=== PATIENT | male | born 1965 | race Caucasian/White ===

== ENCOUNTER 2024-09-05 10:02 | Outpatient (OUT) | payer OTHER, SELFPAY ==
[2024-09-05 10:21] LABS: Basophils Percent Auto 0.2 % (0.2-2.0); Eosinophils Absolute Auto 0.2 10^3/uL (0.0-0.7); Eosinophils Percent Auto 3.7 % (0.9-7.0); Hematocrit 41.9 % (42.0-54.0); Hemoglobin 14.7 g/dL (14.0-18.0); Immature Granulocytes Abs Auto 0.01 10^3/uL (0.00-0.03); Immature Granulocytes Pct Auto 0.2 % (0.0-0.5); Lymphocytes Absolute Auto 1.6 10^3/uL (1.2-3.8); Lymphocytes Percent Auto 32.3 % (20.5-60.0); Mean Corpuscular HGB Conc 35.1 g/dL (29.9-35.2); Mean Corpuscular Hemoglobin 32.5 pg (25.9-34.0); Mean Corpuscular Volume 92.7 fL (80.0-94.0); Monocytes Absolute Auto 0.6 10^3/uL (0.3-0.8); Monocytes Percent Auto 11.2 % (1.7-12.0); Neutrophils Absolute Auto 2.6 10^3/uL (1.4-6.5); Neutrophils Percent Auto 52.4 % (43.0-75.0); Platelet Count 263 10^3/uL (150-450); Red Blood Count 4.52 10^6/uL (4.70-6.10); Red Cell Distribution Width 11.6 % (11.0-15.0); White Blood Count 4.9 10^3/uL (4.0-11.0)
[2024-09-05 10:43] LABS: Estimated Average Glucose 103 mg/dL; Glycohemoglobin A1C 5.2 % (4.5-6.2)
[2024-09-05 11:10] LABS: Alanine Aminotransferase 29 U/L (16-63); Albumin Globulin Ratio 1.1; Albumin Level 3.8 g/dL (3.4-5.0); Alkaline Phosphatase 61 U/L (46-116); Anion Gap 11.8; Aspartate Amino Transferase 26 U/L (15-37); BUN Creatinine Ratio 17.4; Bilirubin Total 0.8 mg/dL (0.2-1.0); Calcium 9.3 mg/dL (8.5-10.1); Carbon Dioxide 29.3 mmol/L (21.0-32.0); Chloride 100 mmol/L (98-107); Chol HDL Ratio 2.5; Cholesterol 203 mg/dL (<=200); Estimated GFR (African America >60 (>=60 mL/min/1.73m^2); Estimated GFR (Non-African Ame >60 (>=60 mL/min/1.73m^2); Free T3 3.34 pg/mL (2.18-3.98); Globulin 3.4 g/dL; Glucose 95 mg/dL (74-106); HDL Cholesterol 81 mg/dL (40-60); Potassium 4.1 mmol/L (3.5-5.1); Prostate Specific Antigen Scrn 0.93 ng/mL (<=4.00); Sodium 137 mmol/L (136-145); Thyroid Stimulating Hormone 1.268 uIU/mL (0.358-3.740); Total Protein 7.2 g/dL (6.4-8.2); Triglycerides 63 mg/dL (<=150); VLDL CHOLESTEROL 12.6 mg/dL
== END 2024-09-05 10:03 | disposition home or self-care (01) ==
LOC: LAB 10:05
PROVIDERS: PCP Family Medicine; Visit Provider Family Medicine
DX: Z00.00 Encounter for general adult medical examination without abnormal findings (principal); I10 Essential (primary) hypertension; Z12.5 Encounter for screening for malignant neoplasm of prostate
CPT/HCPCS: 36415; 80053; 80061; 83036; 84436; 84443; 84481; 85025; G0103

== ENCOUNTER 2024-09-14 09:45 | Outpatient (OUT) | payer OTHER, SELFPAY | END 2024-09-14 09:46 | disposition home or self-care (01) | LOC: PST 09:45 | PROVIDERS: PCP Family Medicine; Visit Provider Surgery | DX: Z01.818 Encounter for other preprocedural examination (principal); Z12.11 Encounter for screening for malignant neoplasm of colon ==

== ENCOUNTER 2024-09-26 07:14 | Day surgery (SDC) | payer OTHER, SELFPAY ==
--- NOTE | 2024-09-26 | OP_ITS ---
OPERATION DATE: 09/26/2024 PREOPERATIVE DIAGNOSIS: Colorectal screening. POSTOPERATIVE DIAGNOSIS: Redundant colon. PROCEDURE: Colonoscopy to cecum. SURGEON: Alex Means M.D. ANESTHESIA: Monitored anesthesia care. ESTIMATED BLOOD LOSS: Zero INDICATIONS AND CONSENT: Patient is a 58-year-old male presents for colorectal screening. Indications, risks, benefits, alternatives of proceeding with colonoscopy were explained extensively to the patient, including the risks of bleeding, colon perforation or anesthetic complications. All of his questions were answered. Informed consent was obtained. PROCEDURE: Patient brought to the operating room, placed in the left lateral decubitus position. Monitored anesthesia care was provided. Rectal exam was performed which showed no masses or blood. The scope was inserted into the anal canal. Under direct visualization was advanced. With the aid of abdominal compression, it was advanced to the cecum where cecal markings were clearly identified. Upon withdrawal of the scope, mucosal surfaces were carefully examined. There was noted to be a good prep. There were no mass lesions or polyps. No inflammatory changes or ulcerations. No significant diverticulosis. There was redundancy of the colon with spasm. The scope was retroflexed in the anal canal. There were some prominent rectal veins. No significant hemorrhoidal disease. Scope was then withdrawn. Patient tolerated procedure well, was sent to recovery room in good condition. Follow up screening colonoscopy should be in 10 years. CC: Gm Pearson M.D. [facility]
--- OUTSIDE RECORDS SUMMARY | 2024-09-26 07:17 | XMS_ITS | CCD ---
Author Organization [facility] Care Team Providers Care Nib Assembler Name Role Phone Alex RUSSELL Attending Unavailable Gm Pearson Referring Unavailable Allergies Allergy Classification Reported Allergen(s) Allergy Type Date of Onset Reaction(s) Facility (1 source) Penicillin; Translations: [penicillin] Drug Allergy [facility] Repository Results Test Name Value Interpretation Reference Range Facil ity Ambulatory Visit Summaryon 0 09-12-2024 Ambulatory Visit Summary Ambulatory Visit Summary HARRIETT DUARTE :1965 Visit Date:09/12/2024 Ambulatory Visit Instructions Your Care Team Attending Physician - Alex RUSSELL MD Primary Care Physician - Gm Pearson MD Referring Physician - Gm Pearson MD This Is Your Medications List Contact prescribing physician if questions or concerns hydrochlorothiazide-li sinopril (hydrochlorothiazide-l isinopril 25 mg-20 mg Tab) multivitamin (Multi Vitamins oral tablet) Procedures Performed Colonoscopy. Discharge Vitals Heart Rate (Peripheral) 72 Respiratory Rate 16 Blood Pressure 138/74 Height 180.34 cm Height 71 in Weight 103.5 kg Weight 228.178 lb BMI 31.82 Medications What How Much When Instructions Unchanged hydrochlorothiazide-li sinopril (hydrochlorothiazide-l isinopril 25 mg-20 mg Tab) 1 Tablets By Mouth Every day Contact prescribing physician if questions or concerns Unchanged multivitamin (Multi Vitamins oral tablet) 1 Tablets By Mouth Every day Contact prescribing physician if questions or concerns Allergies penicillin (Hives) Problems Ongoing - Any problem that you are currently receiving treatment for. BMI 31.0-31.9,adult History of nephrolithiasis Hypertension Obesity due to excess calories Patient Survey You may receive a survey via text or e-mail asking about your office visit. Please share your experience with us by completing your survey. We appreciate your feedback and thank you for choosing us for your care. Normal [facility] Encounters Encounter Date Encounter Type Care Provider Facility Start: 09-12-2024 End: 09-12-2024 ambulatory Alex RUSSELL Facility:[facility] Start: 09-03-2024 ambulatory Alex RUSSELL Facility:[facility] Payers Date Payer Category Payer Unknown [id number] 1965 Unknown [id number] Clinical Note 09-12-2024 Note Date & Type Note Facility 09-12-2024 Note General Surgery Offi ce/Clinic Note Chief Complaint consultation for colonoscopy HPI Staff 58 year old male presents on consultation from Dr. Pearson for screening colonoscopy. Denies abdominal or rectal pain. No rectal bleeding or change in bowel habits. Denies nausea or vomiting. No unexplained weight loss. Reports previous colonoscopy was [place] approximately [place] He can recall polyp removal with recommended 5 year recall which he did not follow through with. Family history of colon cancer in grandfather- age 70's or 80's.. History of Present Illness 58 yo male with h/o htn, nephrolithiasis, referred for colorectal screening; denies change in bms or blood in stools; no abd complaints; no abd operations; last colonoscopy 10 years ago in [place], reportedly with removal of several polyps; no asa or NSAID use; smokes several cigars per year, no cigarettes; fmhx of colon cancer in grandfather, dx in his 70's, no fmhx of IBD. Review of Systems PHQ Score Initial Depression Screen Score: 0 SCORE ROS - Provider Constitutional: no fever, no sweats, no weight loss. Eyes: no glasses, no blurred vision, no visual loss. ENMT: no dentures, no hoarseness, no swallowing difficulties, no hearing loss, no ear infection(s), no nose bleeds. Cardiovascular: normal blood pressure, no chest pain, regular heartbeat, no heart murmur. Respiratory: no shortness of breath, no cough, no asthma, no wheezing. Gastrointestinal: no nausea, no vomiting, no diarrhea, no constipation, no blood in stool, no change in bowel habits, no abdominal pain, no hepatitis. Genitourinary: no kidney stones, no urine infection, no dysuria. Musculoskeletal: no pain, no weakness. Skin: no changing moles, no rash, no skin lumps. Neurologic: no seizures, no epilepsy, no headache. Psychiatric: no emotional or psychiatric problem. Heme/Lymph: no bleeding problems, no anemia, no blood clots, no transfusions. Allergy/Immunologic: no swollen lymph nodes/glands, no IV drug abuse. Other: Additional ROS info: Except as noted in the above Review of Systems and in the History of Present Illness, all other systems have been reviewed and are negative or noncontributory. Physical Exam Vitals & Measurements HR: 72(Peripheral) RR: 16 BP: 138/74 HT: 180.34 cm HT: 71 in WT: 228.178 lb WT: 103.5 kg BMI: 31.82 HEENT: normal conjunctiva, sclera clear, no scleral icterus, EOM intact, PERRLA, oral mucosa moist without lesions. Neck: trachea midline, no mass, symmetric, no thyromegaly or nodules, no adenopathy Respiratory: lungs CTA, respirations non labored. Cardiovascular: regular rate and rhythm, no murmur, no pedal edema or varicosities. Gastrointestinal: soft, non distended, no tenderness, no masses, no palpable hernias, diastasis recti no, no hepatosplenomegaly; normal bs Lymphatic: no cervical adenopathy, no supraclavicular adenopathy. Musculoskeletal: normal gait, digits and nails without infection, nodes, cyanosis, clubbing. Skin: no rashes, no lesions, no ulcers, no subcutaneous nodules, induration. Psychiatric/Neuro: oriented to time, place, person, judgement normal, affect appropriate for age, insight intact, no focal deficits. Tests: , review of old records completed , Discussed surgical options, risks, and possible complications with patient. Assessment/Plan 1. Screening for malignant neoplasm of colon (Z12.11: Encounter for screening for malignant neoplasm of colon) plan colonoscopy under anesthesia, informed consent obtained. Follow-up No qualifying data available Problem List/Past Medical History Ongoing BMI 31.0-31.9,adult History of nephrolithiasis Hypertension Obesity due to excess calories Screening for malignant neoplasm of colon Historical No qualifying data Procedure/Surgical History Colonoscopy. Medications hydrochlorothiazide-lisinopril 25 mg-20 mg Tab, 1 tab(s), Oral, Daily Multi Vitamins oral tablet, 1 tab(s), Oral, Daily Allergies penicillin (Hives) Social History Alcohol Current. Beer. 1-2 times per week., 09/09/2024 Substance Abuse Current, Marijuana, 1-2 times per week, 09/12/2024 Tobacco Never (less than 100 in lifetime) Tobacco Use:. Former smokeless tobacco user, quit more than 30 days ago Smokeless Tobacco Use:. Oral, 09/12/2024 Family History Hypertension: Father. Parkinson disease: Father. Primary malignant neoplasm of colon: Grandparent. Primary malignant neoplasm of female breast: Mother. [facility] Comment on above: Result Comment: Elec tronically Signed By: DREW POLK, Alex Irby.alexi\Date and Time Signed: 09/12/24 14:45 EDT Summary Purpose Family History No Family History Records Found Advance Directives No Advanced Directives Records Found Additional Source Comments (unrecognized sect ion and content) No Status Records Found INFORMATION SOURCE (unrecogn ized section and content) DATE CREATED AUTHOR 09/13/2024 [facility] FOR RECORDS PERTAINING TO PATIENTS WHO ARE OR HAVE BEEN ENROLLED IN A CHEMICAL DEPENDENCY/SUBSTANCEABUSE PROGRAM, SOME INFORMATION MAY BE OMITTED. This clinical summary was aggregated from multiple sources. Caution should be exercised in using it in the provision of clinical care. This summary normalizes information from multiple sources, and as a consequence, information in this document may materially change the coding, format and clinical context of patient data. In addition, data may be omitted in some cases. CLINICAL DECISIONS SHOULD BE BASED ON THE PRIMARY CLINICAL RECORDS. [employer] [facility]. provides no warranty or guarantee of the accuracy or completeness of information in this document.
[2024-09-26 07:20] VITALS: BP 136/82; PULSE 63; TEMP 36.2; O2SAT 96; BMI 31.3
[2024-09-26] MEDS: 0.9 % SODIUM CHLORIDE 500 ML 50 ML IV (07:44)
[2024-09-26 09:26] VITALS: BP 105/66; PULSE 72; TEMP 36.4; O2SAT 95
[2024-09-26 09:41] VITALS: BP 103/66; PULSE 61; O2SAT 100
[2024-09-26 09:56] VITALS: BP 128/56; PULSE 48; TEMP 36.4; O2SAT 99
== END 2024-09-26 09:56 | disposition home or self-care (01) ==
PROVIDERS: PCP Family Medicine; Visit Provider Surgery
PROC: (CPT 812; principal; 2024-09-26 08:30)
DX: Z12.11 Encounter for screening for malignant neoplasm of colon (principal); Q43.8 Other specified congenital malformations of intestine; Z80.0 Family history of malignant neoplasm of digestive organs; Z86.0100 Personal history of colon polyps, unspecified; I10 Essential (primary) hypertension; Z87.442 Personal history of urinary calculi; Z87.891 Personal history of nicotine dependence
CPT/HCPCS: 45378; J2704